=== PATIENT | female | born 1985 | race Caucasian/White ===

== ENCOUNTER 2016-11-02 06:31 | Emergency (ER) | payer OTHER ==
[~2016-11-02] VITALS: Wt 90.0 kg
[~2016-11-02 06:31] MED LIST: FERR325C PO; IBUP800T25 PO; PERCOCET PO; PREN1TAB79 PO
[2016-11-02] MEDS ORDERED: IBUP-1542 PO (07:21)
[2016-11-02] MEDS ORDERED: CIPR7.5D4 LEFT EAR (07:21)
--- NOTE | 2016-11-02 09:55 | ERD ---
ER Documentation Chief Complaint Date/Time DATE: 11/02/16 TIME: 09:53 Chief Complaint left ear pain with no cough or uri. possible ear wax HPI This is a 31-year-old female presenting to emergency department for left earache 2 days. Patient states she usually has excess earwax and used her grandmother's eardrops that may have been . She reports itching and throbbing pain to left ear. No fevers or chills. No nasal congestion, rhinorrhea or rhinitis. No nausea, vomiting or diarrhea or abdominal pain. ROS All systems reviewed and are negative except as per history of present illness. Medications Home Meds Active Scripts Ibuprofen* (Motrin*) 600 Mg Tab, 600 MG PO Q6, #15 TAB Prov:PARADISE STEELE NP 11/02/16 Ciprofloxacin Hcl/Dexameth (Ciprodex Otic Suspension) 7.5 Ml Drops.susp, 4 DROP LEFT EAR BID for 7 Days, EA Prov:PARADISE STEELE NP 11/02/16 Oxycodone Hcl/Acetaminophen (Percocet) 1 Tab Tab, 2 TAB PO Q4H Y for PAIN LEVEL 6-10, #30 TAB 0 Refills Prov:AISHA BENTLEY MD 05/15/16 Ibuprofen* (Ibuprofen*) 800 Mg Tablet, 800 MG PO Q8, #20 TAB 0 Refills Prov:AISHA BENTLEY MD 05/15/16 Reported Medications Ferrous Sulfate (Iron) 325 Mg Capsule.er, 325 MG PO BID Y for ANEMIA, CAP 02/12/16 Vit W-Ca,Fe,FA(<1 mg) ( Vitamins) 1 Each Tablet, 1 EACH PO DAILY, TAB 02/12/16 Allergies Allergies: Coded Allergies: No Known Allergies (Verified Allergy, Unknown, 02/12/16) PMhx/Soc Medical and Surgical Hx: pt denies Medical Hx, pt denies Surgical Hx Hx Alcohol Use: No Hx Substance Use: No Hx Tobacco Use: No Smoking Status: Never smoker Physical Exam Vitals Vital Signs Date Time Temp Pulse Resp B/P Pulse Ox O2 Delivery O2 Flow Rate FiO2 11/02/16 06:34 98.3 84 20 125/84 98 Physical Exam Const: No acute distress, alert Head: Atraumatic Eyes: Normal Conjunctiva ENT: Normal External Ears, Nose and Mouth. Mild erythema to left ear canal. Left TM normal. No erythema to right ear canal. Right TM normal. No erythema or exudate to posterior pharynx. Neck: Full range of motion..~ No meningismus. Resp: Clear to auscultation bilaterally. No wheezing, rhonchi or crackles Cardio: Regular rate and rhythm, no murmurs Abd: Soft, non tender, non distended. Normal bowel sounds Skin: No petechiae or rashes Back: No midline or flank tenderness Ext: No cyanosis, or edema Neur: Awake and alert Psych: Normal Mood and Affect Procedures/MDM MDM: 31-year-old female presents emergency department for left earache with pruritus to left ear canal. No fevers or chills. Vital signs are stable. Patient used eardrops from her grandmother yesterday. Physical exam reveals mild erythematous left ear canal. No otorrhea. No mastoid tenderness. Low suspicion for mastoiditis, pleural effusion, pneumothorax or acute CT. Differential diagnosis includes but not limited to URI, influenza, otitis media , otitis externa, asthma exacerbation, croup, bronchitis, bronchiolitis and costochondritis. Patient is appropriate for outpatient management and will be given prescription for Ciprodex and ibuprofen. Instructed patient to follow-up with primary care provider in the next 2-3 days for reassessment and additional management. Return to ED for any high fever, chest pain, difficulty breathing, shortness breath, wheezing, vomiting, diarrhea, abdominal pain or any new or worsening symptoms. Patient verbalizes understanding. All questions answered at discharge. Departure Diagnosis: Primary Impression: Otitis externa Otitis externa type: noninfectious Noninfectious otitis externa type: unspecified noninfectious type Laterality: left Chronicity: acute Qualified Code: H60.502 - Acute noninfective otitis externa of left ear, unspecified type Condition: Stable Patient Instructions: External Ear Infection (Adult) Referrals: COMM[facility]ITY CLIN[facility] YOU HAVE RECEIVED A MEDICAL SCREENING EXAM AND THE RESULTS INDICATE THAT YOU DO NOT HAVE A CONDITION THAT REQUIRES URGENT TREATMENT IN THE EMERGENCY DEPARTMENT. FURTHER EVALUATION AND TREATMENT OF YOUR CONDITION CAN WAIT UNTIL YOU ARE SEEN IN YOUR DOCTORS OFFICE WITHIN THE NEXT 1-2 DAYS. IT IS YOUR RESPONSIBILITY TO MAKE AN APPOINTMENT FOR FOLOW-UP CARE. IF YOU HAVE A PRIMARY DOCTOR --you should call your primary doctor and schedule an appointment IF YOU DO NOT HAVE A PRIMARY DOCTOR YOU CAN CALL OUR PHYSICIAN REFERRAL HOTLINE AT IF YOU CAN NOT AFFORD TO SEE A PHYSICIAN YOU CAN CHOSE FROM THE FOLLOWING [facility] [address] [facility] [address] [facility] [address] [facility] [address] [facility] [address] [facility] [facility] [address] [facility]. [facility] YOU HAVE RECEIVED A MEDICAL SCREENING EXAM AND THE RESULTS INDICATE THAT YOU DO NOT HAVE A CONDITION THAT REQUIRES URGENT TREATMENT IN THE EMERGENCY DEPARTMENT. FURTHER EVALUATION AND TREATMENT OF YOUR CONDITION CAN WAIT UNTIL YOU ARE SEEN IN YOUR DOCTORS OFFICE WITHIN THE NEXT 1-2 DAYS. IT IS YOUR RESPONSIBILITY TO MAKE AN APPOINTMENT FOR FOLOW-UP CARE. IF YOU HAVE A PRIMARY DOCTOR --you should call your primary doctor and schedule and appointment IF YOU DO NOT HAVE A PRIMARY DOCTOR YOU CAN CALL OUR PHYSICIAN REFERRAL HOTLINE AT . IF YOU CAN NOT AFFORD TO SEE A PHYSICIAN YOU CAN CHOSE FROM THE FOLLOWING [facility]: [facility] [address] [place] [address] [facility] [address] [place] [address] [facility] [address] [place] [address] Additional Instructions: Call your primary care doctor TOMORROW for an appointment during the next 2-3 days.See the doctor sooner or return here if your condition worsens before your appointment time. Return to ED for any high fever, chest pain, difficulty breathing, shortness breath, wheezing, vomiting, diarrhea, abdominal pain or any new or worsening symptoms. PARADISE STEELE NP November 02, 2016 09:55
== END 2016-11-02 07:29 | disposition home or self-care (01) ==
LOC: FTE 06:31
DX: H60.502 Unspecified acute noninfective otitis externa, left ear (principal)
CPT/HCPCS: 99283

== ENCOUNTER 2019-03-06 07:37 | Emergency (ER) | payer OTHER ==
[~2019-03-06] VITALS: Ht 165.1 cm; Wt 83.9 kg
[~2019-03-06 07:37] MED LIST changes: +CIPR7.5D LEFT EAR; +IBUP-1542 PO; +IBUP-1544 PO; -IBUP800T25 PO; +PENI500T PO
[2019-03-06 07:45] VITALS: BP 115/66; PULSE 69; RESP 20; Ht 165.1 cm; Wt 83.9 kg
[2019-03-06] MEDS ORDERED: KETOROLAC 30 MG INJ IM STA (08:15)
[2019-03-06] MEDS ORDERED: DEXAMETHASONE 10 MG/ML 1 ML INJ IM ONE (08:30)
== END 2019-03-06 09:23 | disposition home or self-care (01) ==
LOC: FTE 07:37
DX: J02.9 Acute pharyngitis, unspecified (principal)
CPT/HCPCS: 36415; 81025; 86308; 87880; 96372; J1100; J1885; Z7502